=== PATIENT | male | born 1960 | race Caucasian/White ===

== ENCOUNTER 2020-09-02 07:28 | Day surgery (SDC) | payer OTHER ==
[~2020-09-02] VITALS: Ht 177.8 cm; Wt 92.3 kg
[~2020-09-02 07:28] MED LIST: ASPIRIN EC81 MG PO; ATENOLOL25 MG PO; BISOPROLOL FUMAR5 MG PO; BUPROPION HCL100 MG PO; PLAVIX75 MG PO; SIMVASTATIN80 MG PO; VASOTEC5 MG PO; VENTOLIN HFA18 GM INH; WELLBUTRIN SR200 MG PO
--- NOTE | 2020-09-02 08:54 | NUR ---
09/02/20 0854 Jasper,Arely 0856 PT ARRIVED TO PACU ON 2L VIA NC, PT WAKES TO TACTILE STIMULI AND RESP EVEN AND UNLABORED, PT REORIENTED TO PACU AND EASILY FALLS BACK TO SLEEP. VSS.
--- NOTE | 2020-09-02 10:19 | NUR ---
PT FULLY DISCHARGED BUT REMAINS IN DAY SURGERY WAITING FOR A RIDE / DD. PT ESCORTED TO HIS TRUCK SO HE COULD GET HIS PHONE WITH WICH HE CAN CALL HIS SON HE IS NOT SURE OF THE PHONE NUMBER AND THE NUMBER HE GAVE US PRE PROCEDURE IS INCORRECT. PT ESCORTED BACK INSIDE DAY SURGERY TO AWAIT GEOLOGICAL E LOGGER. WATER, CRACKERS, WARM BLANKETS, AND CALL LIGHT AT HAND.
--- NOTE | 2020-09-02 10:27 | OR ---
[facility] [address], [place] [address] Signed DATE OF OPERATION: 09/02/2020 SURGEON: Yahaira Garcia MD PREOPERATIVE DIAGNOSES: Change in bowel habits with constipation, and rectal/anal pain. POSTOPERATIVE DIAGNOSES: 1. Minimal to moderate external hemorrhoids. 2. Minimal sigmoid diverticulosis. 3. A 3 mm polyp on ileocecal valve. PROCEDURE: Colonoscopy with hot biopsy. ESTIMATED BLOOD LOSS: None. INDICATIONS: Magy is a 60-year-old gentleman, asked to see me for a colonoscopy. He said the last four months, he has noticed a change in bowel habits. He said the stools soft, but it seems to be difficult to come out. He said he can stand up to an hour on the toilet. He said the stool sticky and it valenzuela around the anus and he feels pain up inside the rectum. He does not feel like the pain increases when the stool is coming through the anal canal. Since it was not going away, he mentioned it to his primary care provider. He has been trying to use fiber in his diet. He thinks it might be a little better. He gives no family history of colon cancer or polyps or inflammatory bowel disease. In the office, I gave him a pamphlet on colonoscopy and we looked at that together along with the risks including, but not limited to gas bloating, crampy abdominal pain, bleeding, perforation requiring surgery, and missed diagnosis. We also discussed the need for IV conscious sedation, he had expressed understanding and wished to proceed. PROCEDURE NOTE: Magy was taken into our endoscopy suite and placed in the left lateral decubitus position. He was given IV sedation with 8 mg of Versed and 125 mcg of fentanyl. A digital rectal exam was performed. He does have minimal to moderate external hemorrhoids. He has good sphincter tone. No evidence of an anal fissure in the posterior anterior midline. No fistula tracts. Prostate was unremarkable. The adult colonoscope had been introduced and advanced under direct visualization into the cecum itself. His prep was quite good. We could easily see the appendiceal orifice and the Electronically Signed By: YAHAIRA GARCIA MD 09/02/20 1027 PATIENT NAME: MAGY RICHMOND OPERATIVE REPORT DATE OF : 60 REPORT #: [id number] PHYSICIAN: YAHAIRA GARCIA MD PCP: SUZANNE TRAN REPORT IS CONFIDENTIAL AND NOT TO BE RELEASED WITHOUT AUTHORIZATION [facility] [address], [place] [address] Signed ileocecal valve. The scope was slowly withdrawn. We took pictures throughout for photodocumentation. He had a very tiny 3 mm polyp on his ileocecal valve. It was easily removed with hot biopsy forceps. He does have some diverticula in the sigmoid colon. They were minimal to moderate in size, few in number, and scattered about. The rectum itself was unremarkable. Upon retroflexion of scope, we looked carefully around the anus and I really did not see anything unusual whatsoever. Really, no internal hemorrhoids whatsoever. After this, the gas was suctioned out and the colonoscope removed. Magy tolerated procedure quite well. RECOMMENDATIONS: I will see Magy back in my office in 7 to 14 days to review his results. Yahaira Garcia MD ALB/MODL /[id number] cc: MD Philippe Garner PA Copies: YAHAIRA GARCIA MD ~ Electronically Signed By: YAHAIRA GARCIA MD 09/02/20 1027 PATIENT NAME: YIMAGY UZMA OPERATIVE REPORT DATE OF : 60 REPORT #: [id number] PHYSICIAN: YAHAIRA GARCIA MD PCP: SUZANNE TRAN REPORT IS CONFIDENTIAL AND NOT TO BE RELEASED WITHOUT AUTHORIZATION
--- NOTE | 2020-09-03 15:59 | PATH ---
[facility] [address] [place], [place] [address] Signed SPECIMEN(S): A ILEOCECAL VALVE POLYP SPECIMEN SOURCE: A. ILEOCECAL VALVE POLYP CLINICAL HISTORY: Screening. Post: Ileocecal valve polyp, diverticulosis, external hemorrhoids. Colonoscopy. MICROSCOPIC DESCRIPTION: Histologic sections of all submitted blocks are examined by light microscopy. These findings, together with the gross examination, support the pathologic diagnosis. 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 JVR:smh:C2NR GROSS DESCRIPTION: The specimen, labeled "WW," and designated on the requisition "ileocecal valve polyp," is received in formalin and consists of one piece of pink-jurado tissue (0.3 x 0.2 x 0.2 cm). The specimen is submitted entirely in cassette (A1). AC (under the direct supervision of a pathologist) The Gross Description was prepared using a voice recognition system. The report was reviewed for accuracy; however, sound-alike word errors, addition and/or deletions may occur. If there is any question about this report, please contact Client Services. PERFORMING LABORATORY: The technical component was performed by [facility], [address] [place] [id number] (Child Welfare Specialist: Gloria Lambert MD; CLIA# [id number]). Professional interpretation was performed by [facility], [facility], [address] [place] [id number] (Child Welfare Specialist: Philippe Kong M.D.). Diagnostician: Philippe Kong MD Pathologist Electronically Signed 09/03/2020 PATIENT NAME: MAGY RICHMOND PATHOLOGY DATE OF : 60 REPORT #: [id number] PHYSICIAN: [facility] PCP: SUZANNE TRAN REPORT IS CONFIDENTIAL AND NOT TO BE RELEASED WITHOUT AUTHORIZATION [address] [address] Signed Copies: ~ PATIENT NAME: MAGY RICHMOND PATHOLOGY DATE OF : 60 REPORT #: [id number] PHYSICIAN: [facility] PCP: SUZANNE TRAN REPORT IS CONFIDENTIAL AND NOT TO BE RELEASED WITHOUT AUTHORIZATION
== END 2020-09-02 10:03 | disposition home or self-care (01) ==
LOC: OPS 07:28 → DS 07:28 → OPS 08:15
PROVIDERS: ATTEND Colon & Rectal Surgery
PROC: 0DBC8ZX Excision of Ileocecal Valve, Via Natural or Artificial Opening Endoscopic, Diagnostic (ICD-10-PCS; principal; 2020-09-02 08:15)
DX: D12.0 Benign neoplasm of cecum (principal); K64.4 Residual hemorrhoidal skin tags; K57.30 Diverticulosis of large intestine without perforation or abscess without bleeding; K59.00 Constipation, unspecified; L29.0 Pruritus ani; K62.89 Other specified diseases of anus and rectum; I10 Essential (primary) hypertension; J44.9 Chronic obstructive pulmonary disease, unspecified; E78.5 Hyperlipidemia, unspecified; Z87.891 Personal history of nicotine dependence; Z79.899 Other long term (current) drug therapy
CPT/HCPCS: 99153; G0500; J2250; J3010